=== PATIENT | male | born 1970 | race Hispanic/Latino ===

== ENCOUNTER 2020-05-02 10:57 | Inpatient (IN) | payer SELFPAY ==
[~2020-05-02] VITALS: Ht 167.6 cm; Wt 93.0 kg
[2020-05-02] MEDS ORDERED: ACETAMINOPHEN EXTRA STRENGTH 500 MG TABLET ONE (11:39)
[2020-05-02 13:43] LABS: BASOPHILS % (AUTO) 0.3 % (0.0-5.0); HEMATOCRIT 42.1 % (42-54); LYMPHOCYTES % (AUTO) 10.6 % (21.0-51.0); MEAN CORPUSCULAR HEMOGLOBIN 30.5 pg (27.0-33.0); MEAN CORPUSCULAR HGB CONC 35.4 g/dL (32.0-36.0); MEAN CORPUSCULAR VOLUME 86.1 fL (79-99); MONOCYTES % (AUTO) 10.5 % (3.0-13.0); NEUTROPHILS % (AUTO) 78.1 % (40.0-77.0); PLATELET COUNT (AUTO) 214 K/uL (130-400); RED BLOOD CELL COUNT(AUTO) 4.89 MIL/uL (4.50-6.20); RED CELL DISTRIBUTION WIDTH 12.7 % (11.0-15.5); WHITE BLOOD COUNT (AUTO) 11.7 K/uL (4.8-10.8)
[2020-05-02 13:54] LABS: ALBUMIN 3.2 g/dL (3.5-5.0); BILIRUBIN,TOTAL 0.5 mg/dL (0.2-1.0); CREATININE 1.1 mg/dL (0.5-1.5); POTASSIUM 3.8 mmol/L (3.5-5.1); TOTAL PROTEIN, SERUM 7.4 g/dL (6.0-8.3)
[2020-05-02 14:03] LABS: B-TYPE NATRIURETIC PEPTIDE 28 pg/mL (0-100)
[2020-05-02] MEDS ORDERED: ALBUTEROL INHALER 90MCG/INH IH ONE (14:49)
[2020-05-02] MEDS ORDERED: DEXAMETHASONE SOD PHOSPHATE 10MG/ML 1ML VIAL ONE (14:50)
[2020-05-02] MEDS ORDERED: CEFTRIAXONE SODIUM 1 GM ONE (14:50)
[2020-05-02] MEDS ORDERED: ASPIRIN 325 MG TABLET ONE (14:50)
[2020-05-02] MEDS ORDERED: AZITHROMYCIN 250 MG TABLET PO ONE (14:51)
[2020-05-02] MEDS ORDERED: SODIUM CHLORIDE 0.9% 1000ML 1,000 ML IV ONE (14:51)
[2020-05-02] MEDS ORDERED: SODIUM CHLORIDE 0.9% 50 ML IV ONE (14:51)
[2020-05-02] MEDS ORDERED: ACETAMINOPHEN-CODEINE 300/30MG TAB ONE (14:51)
[2020-05-02 14:56] LABS: ABG BASE EXCESS -0.4 mmol/L (-2.0-3.0); ABG HCO3 21.7 mmol/L (21.0-28.0); ABG OXYGEN SATURATION 96.6 % (95.0-99.0); ABG PCO2 29 mmHg (35-48)
[2020-05-02] MEDS ORDERED: DOXYCYCLINE HYCLATE 100 MG TABLET PO ONE (20:44)
[2020-05-02] MEDS ORDERED: DOXYCYCLINE HYCLATE 100 MG TABLET PO SCH (21:00)
[2020-05-02] MEDS ORDERED: CEFTRIAXONE SODIUM 1 GM IVP SCH (22:00)
[2020-05-02 23:17] LABS: APPEARANCE,URINE Clear (CLEAR); BILIRUBIN,URINE Negative (NEGATIVE); COLOR,URINE Yellow (YELLOW); GLUCOSE, URINE (UA) Negative (NEGATIVE); KETONES,URINE Negative (NEGATIVE); LEUKOCYTE ESTERASE ,URINE Negative (NEGATIVE); NITRATE,URINE Negative (NEGATIVE); OCCULT BLOOD,URINE Negative (NEGATIVE); PH,URINE 5.5 (5.0-8.0); PROTEIN,URINE POS 1+ mg/dL (NEGATIVE)
[2020-05-03] MEDS ORDERED: GUAIFENESIN-DM 200/20 MG 10 ML ONE (02:26)
[2020-05-03 04:02] LABS: HEMATOCRIT 40.7 % (42-54); LYMPHOCYTES % (AUTO) 7.7 % (21.0-51.0); MEAN CORPUSCULAR HEMOGLOBIN 30.6 pg (27.0-33.0); MEAN CORPUSCULAR HGB CONC 35.1 g/dL (32.0-36.0); MEAN CORPUSCULAR VOLUME 87.2 fL (79-99); NEUTROPHILS % (AUTO) 82.9 % (40.0-77.0); PLATELET COUNT (AUTO) 218 K/uL (130-400); RED BLOOD CELL COUNT(AUTO) 4.67 MIL/uL (4.50-6.20); RED CELL DISTRIBUTION WIDTH 12.7 % (11.0-15.5); WHITE BLOOD COUNT (AUTO) 11.2 K/uL (4.8-10.8)
[2020-05-03 04:24] LABS: BILIRUBIN,TOTAL 0.5 mg/dL (0.2-1.0); CREATININE 0.8 mg/dL (0.5-1.5); CRP QUANTITATIVE 116.6 mg/L (0.00-9.0); POTASSIUM 4.4 mmol/L (3.5-5.1); TOTAL PROTEIN, SERUM 7.3 g/dL (6.0-8.3)
[2020-05-03] MEDS ORDERED: GUAIFENESIN-DM 200/20 MG 10 ML PO PRN (05:30)
[2020-05-03] MEDS ORDERED: DOXYCYCLINE HYCLATE 100 MG TABLET PO ONE (08:06)
[2020-05-03] MEDS ORDERED: DEXAMETHASONE SOD PHOSPHATE 10MG/ML 1ML VIAL ONE (08:06)
[2020-05-03] MEDS ORDERED: ASCORBIC ACID 500 MG TAB ONE (08:07)
[2020-05-03] MEDS ORDERED: ENOXAPARIN SODIUM 40 MG/0.4 ML SYRINGE SQ ONE (08:07)
[2020-05-03] MEDS ORDERED: FAMOTIDINE 20MG TAB 20 MG TAB ONE (08:07)
[2020-05-03] MEDS ORDERED: ZINC SULFATE 220 CAPSULE ONE (08:07)
[2020-05-03] MEDS ORDERED: CEFTRIAXONE SODIUM 1 GM ONE (08:08)
[2020-05-03] MEDS ORDERED: FAMOTIDINE 20MG TAB 20 MG TAB PO SCH (09:00)
[2020-05-03] MEDS ORDERED: ENOXAPARIN SODIUM 40 MG/0.4 ML SYRINGE SQ SCH ×2 (09:00→21:00)
[2020-05-03] MEDS ORDERED: ZINC SULFATE 220 CAPSULE PO SCH (09:00)
[2020-05-03] MEDS ORDERED: ASCORBIC ACID 500 MG TAB PO SCH (09:00)
[2020-05-03] MEDS ORDERED: DEXAMETHASONE SOD PHOSPHATE 4 MG/ML 1ML VIAL IVP SCH (09:00)
[2020-05-03] MEDS ORDERED: ACETAMINOPHEN 325 MG TAB PO PRN (14:45)
[2020-05-04] MEDS ORDERED: SODIUM CHLORIDE 0.9% 250 ML IV ONE (03:52)
[2020-05-04 07:11] LABS: BASOPHILS % (AUTO) 0.3 % (0.0-5.0); EOSINOPHILS % (AUTO) 0.3 % (0.0-8.0); HEMATOCRIT 41.2 % (42-54); LYMPHOCYTES % (AUTO) 18.3 % (21.0-51.0); MEAN CORPUSCULAR HEMOGLOBIN 30.5 pg (27.0-33.0); MEAN CORPUSCULAR VOLUME 87.3 fL (79-99); MONOCYTES % (AUTO) 11.1 % (3.0-13.0); NEUTROPHILS % (AUTO) 69.3 % (40.0-77.0); PLATELET COUNT (AUTO) 231 K/uL (130-400); RED BLOOD CELL COUNT(AUTO) 4.72 MIL/uL (4.50-6.20); RED CELL DISTRIBUTION WIDTH 12.7 % (11.0-15.5); WHITE BLOOD COUNT (AUTO) 9.5 K/uL (4.8-10.8)
[2020-05-04 07:33] LABS: BILIRUBIN,TOTAL 0.7 mg/dL (0.2-1.0); CREATININE 0.9 mg/dL (0.5-1.5); CRP QUANTITATIVE 99.1 mg/L (0.00-9.0); POTASSIUM 4.4 mmol/L (3.5-5.1); TOTAL PROTEIN, SERUM 7.5 g/dL (6.0-8.3)
[2020-05-04] MEDS ORDERED: DEXAMETHASONE SOD PHOSPHATE 10MG/ML 1ML VIAL ONE (08:05)
[2020-05-04] MEDS ORDERED: ASCORBIC ACID 500 MG TAB ONE (08:06)
[2020-05-04] MEDS ORDERED: FAMOTIDINE 20MG TAB 20 MG TAB ONE (08:06)
[2020-05-04] MEDS ORDERED: ZINC SULFATE 220 CAPSULE ONE (08:06)
[2020-05-04] MEDS ORDERED: ENOXAPARIN SODIUM 40 MG/0.4 ML SYRINGE SQ ONE (08:07)
[2020-05-04] MEDS ORDERED: DEXAMETHASONE 4 MG TAB PO SCH (09:00)
[2020-05-04] MEDS ORDERED: GUAIFENESIN-CODEINE 5 ML SYRUP ONE (12:37)
[2020-05-04] MEDS ORDERED: LISI-613 PO (14:14)
== END 2020-05-04 20:52 | disposition home or self-care (01) | DRG 871 ==
LOC: EDH 10:57 → OBSVTOIN 10:58 → EDHIP 10:58
PROVIDERS: ADMIT Internal Medicine; ATTEND Internal Medicine
PROC: XW13325 Transfusion of Convalescent Plasma (Nonautologous) into Peripheral Vein, Percutaneous Approach, New Technology Group 5 (ICD-10-PCS; principal; 2020-05-04)
DX: A41.89 Other specified sepsis (principal); U07.1 COVID-19; J96.01 Acute respiratory failure with hypoxia; J12.89 Other viral pneumonia; D68.59 Other primary thrombophilia; I10 Essential (primary) hypertension; E66.9 Obesity, unspecified; Z68.33 Body mass index [BMI] 33.0-33.9, adult
CPT/HCPCS: 36415; 36600; 71045; 80053; 81003; 82550; 82728; 82803; 83615; 83880; 84145; 84484; 85025; 85378; 86140; 86900; 86901; 86927; 87040; 87426; 87804; 87880; 93005; 99291; G0378; J0696; J1100; J1650; J7030; J7050